=== PATIENT | female | born 1935 | race Hispanic/Latino ===

== ENCOUNTER 2018-08-30 10:10 | Inpatient (IN) | payer OTHER ==
[~2018-08-30] VITALS: Ht 167.6 cm; Wt 69.9 kg
[2018-08-30 10:59] LABS: BASOPHILS % (AUTO) 0.4 % (0.0-5.0); EOSINOPHILS % (AUTO) 1.2 % (0.0-8.0); HEMATOCRIT 33.9 % (36-48); MEAN CORPUSCULAR HEMOGLOBIN 28.6 pg (27.0-33.0); MEAN CORPUSCULAR HGB CONC 33.2 g/dL (32.0-36.0); MEAN CORPUSCULAR VOLUME 86.2 fL (79-99); MONOCYTES % (AUTO) 9.1 % (3.0-13.0); NEUTROPHILS % (AUTO) 78.3 % (40.0-77.0); NUCLEATED RED BLOOD CELLS 0.1 % (0.0-0.19); PLATELET COUNT (AUTO) 209 K/uL (130-400); RED BLOOD CELL COUNT(AUTO) 3.94 MIL/uL (4.00-5.50); RED CELL DISTRIBUTION WIDTH 16.9 % (11.0-15.5); WHITE BLOOD COUNT (AUTO) 7.2 K/uL (4.8-10.8)
[2018-08-30] MEDS ORDERED: METRONIDAZOLE 500 MG TABLET ONE (11:02)
[2018-08-30] MEDS ORDERED: LEVOFLOXACIN 500 MG/D5W 100 ML 100 ML ONE (11:02)
[2018-08-30 11:04] LABS: POTASSIUM 3.3 mmol/L (3.5-5.1)
[2018-08-30 11:09] LABS: ALBUMIN 2.5 g/dL (3.5-5.0); BILIRUBIN,TOTAL 0.3 mg/dL (0.2-1.0); TOTAL PROTEIN, SERUM 6.6 g/dL (6.0-8.3)
[2018-08-30] MEDS ORDERED: OMEG100032 PO (14:18)
[2018-08-30] MEDS ORDERED: CYAN100099 PO (14:18)
[2018-08-30] MEDS ORDERED: LOSA1TAB54 PO (14:18)
[2018-08-30] MEDS ORDERED: RISP0.2515 PO (14:18)
[2018-08-30] MEDS ORDERED: CALC-1105 PO (14:18)
[2018-08-30] MEDS ORDERED: MIRT15TA6 PO (14:18)
[2018-08-30] MEDS ORDERED: MULT-1258 PO (14:18)
[2018-08-30] MEDS ORDERED: [UNRECOGNIZED DRUG - CODE] PO (14:18)
[2018-08-30] MEDS ORDERED: SERT100T12 PO (14:18)
[2018-08-30] MEDS ORDERED: ONDA8TAB11 PO (14:18)
[2018-08-30] MEDS ORDERED: MEMA10TA20 PO (14:18)
[2018-08-30] MEDS ORDERED: ACET650T9 PO (14:18)
[2018-08-30] MEDS ORDERED: TRAZ-185 PO (14:18)
[2018-08-30] MEDS ORDERED: DONE23TA12 PO (14:18)
[2018-08-30] MEDS ORDERED: TRAM50TA4 PO (14:18)
[2018-08-30] MEDS ORDERED: AMLO2.5T2 PO (14:18)
[2018-08-30] MEDS ORDERED: PAZO200T PO (14:46)
[2018-08-30] MEDS ORDERED: ZOSYN 3.375GM+NS 50ML 50 ML IV ONE (17:35)
[2018-08-30] MEDS ORDERED: HYDROMORPHONE HCL 0.5 MG/0.5 ML ML IVP PRN (17:45)
[2018-08-30] MEDS ORDERED: ONDANSETRON HCL 4 MG/2 ML VIAL IVP PRN (18:00)
[2018-08-30] MEDS: SODIUM CHLORIDE 0.9% 1000ML 1,000 ML IV SCH (18:00)
[2018-08-30] MEDS ORDERED: ACETAMINOPHEN 650 MG SUPPOSITORY RC ONE (20:23)
[2018-08-30 23:15] LABS: APPEARANCE,URINE Cloudy (CLEAR); BILIRUBIN,URINE Negative (NEGATIVE); COLOR,URINE Yellow (YELLOW); GLUCOSE, URINE (UA) Negative (NEGATIVE); KETONES,URINE Negative (NEGATIVE); LEUKOCYTE ESTERASE ,URINE Moderate (NEGATIVE); NITRATE,URINE Negative (NEGATIVE); OCCULT BLOOD,URINE Negative (NEGATIVE); PROTEIN,URINE Negative (NEGATIVE); UROBILINOGEN,URINE 0.2 mg/dL (0.2-1.0)
[2018-08-30 23:24] LABS: BACTERIA,URINE None Seen /HPF (None Seen); RBC,URINE None Seen /HPF (0-1); SQUAMOUS EPITHELIAL CELL,UR Rare /HPF (0-2); WBC,URINE 0-1 /HPF (0-1)
[2018-08-31] MEDS: ZOSYN 3.375GM+NS 50ML 50 ML IV SCH ×3 (01:00→17:00)
[2018-08-31] MEDS ORDERED: ZOSYN 3.375GM+NS 50ML 50 ML IV ONE ×2 (01:38→10:11)
[2018-08-31] MEDS: SODIUM CHLORIDE 0.9% 1000ML 1,000 ML IV SCH ×3 (02:00→18:00)
[2018-08-31 05:37] LABS: BASOPHILS % (AUTO) 0.5 % (0.0-5.0); EOSINOPHILS % (AUTO) 1.7 % (0.0-8.0); HEMATOCRIT 30.2 % (36-48); LYMPHOCYTES % (AUTO) 16.9 % (21.0-51.0); MEAN CORPUSCULAR HEMOGLOBIN 28.8 pg (27.0-33.0); MEAN CORPUSCULAR HGB CONC 33.4 g/dL (32.0-36.0); MEAN CORPUSCULAR VOLUME 86.2 fL (79-99); MONOCYTES % (AUTO) 11.7 % (3.0-13.0); NEUTROPHILS % (AUTO) 69.2 % (40.0-77.0); PLATELET COUNT (AUTO) 203 K/uL (130-400); RED BLOOD CELL COUNT(AUTO) 3.51 MIL/uL (4.00-5.50); RED CELL DISTRIBUTION WIDTH 16.8 % (11.0-15.5); WHITE BLOOD COUNT (AUTO) 7.3 K/uL (4.8-10.8)
[2018-08-31 05:48] LABS: POTASSIUM 3.2 mmol/L (3.5-5.1)
[2018-08-31 05:52] LABS: BILIRUBIN,TOTAL 0.5 mg/dL (0.2-1.0); MAGNESIUM 1.6 mg/dL (1.80-2.40); PHOSPHORUS 2.7 mg/dL (2.5-4.9); TOTAL PROTEIN, SERUM 5.5 g/dL (6.0-8.3)
[2018-08-31] MEDS: PANTOPRAZOLE 40 MG/VIAL IVP SCH (09:00)
[2018-08-31] MEDS ORDERED: LEVOFLOXACIN 500 MG/D5W 100 ML 100 ML ONE (10:11)
--- NOTE | 2018-08-31 10:39 | NUR ---
NIDA Joseluis met with pt who states she and Bharath Goldsmith live with their daughter Coral [address] [id number]. Pt states she is retired, independent, no DME or in home care services. Pt is seen by Dr Mariscal and uses Jovan Harper. Pt denies dc needs, plan is home with family Addendum: 08/31/18 at 1041 by HO HOLDER Amended: Links added.
[2018-08-31] MEDS: LEVOFLOXACIN 500 MG/D5W 100 ML 100 ML IV SCH (11:00)
[2018-08-31] MEDS ORDERED: LORAZEPAM 2 MG/ML 1 ML VIAL ONE (15:17)
[2018-09-01] MEDS: ZOSYN 3.375GM+NS 50ML 50 ML IV SCH ×3 (01:00→21:07)
[2018-09-01] MEDS: SODIUM CHLORIDE 0.9% 1000ML 1,000 ML IV SCH ×3 (02:00→20:22)
[2018-09-01] MEDS ORDERED: ZOSYN 3.375GM+NS 50ML 50 ML IV ONE (02:58)
[2018-09-01 03:50] VITALS: BP 143/62
--- NOTE | 2018-09-01 03:50 | NUR ---
PATIENT ARRIVED TO ROOM, ORIENTATED TO CALL ALONZO, BATH GIVEN. PATIENT ORIENTATED TO NAME ONLY. ALONZO ALARM ON, CALL ALONZO WITHIN REACH.
[2018-09-01 07:39] VITALS: BP 125/57
--- NOTE | 2018-09-01 08:35 | NUR ---
DR JONES NOTIFIED AND STATED THAT HE WILL SEE HER THIS AM
[2018-09-01 08:49] LABS: BASOPHILS % (AUTO) 0.2 % (0.0-5.0); HEMATOCRIT 32.4 % (36-48); LYMPHOCYTES % (AUTO) 12.5 % (21.0-51.0); MEAN CORPUSCULAR HEMOGLOBIN 28.8 pg (27.0-33.0); MEAN CORPUSCULAR HGB CONC 33.3 g/dL (32.0-36.0); MEAN CORPUSCULAR VOLUME 86.5 fL (79-99); MONOCYTES % (AUTO) 10.9 % (3.0-13.0); NEUTROPHILS % (AUTO) 75.4 % (40.0-77.0); NUCLEATED RED BLOOD CELLS 0.1 % (0.0-0.19); PLATELET COUNT (AUTO) 199 K/uL (130-400); RED BLOOD CELL COUNT(AUTO) 3.75 MIL/uL (4.00-5.50); RED CELL DISTRIBUTION WIDTH 16.6 % (11.0-15.5); WHITE BLOOD COUNT (AUTO) 6.7 K/uL (4.8-10.8)
[2018-09-01 08:57] LABS: CREATININE 0.8 mg/dL (0.5-1.5); POTASSIUM 3.2 mmol/L (3.5-5.1)
[2018-09-01] MEDS: PANTOPRAZOLE 40 MG/VIAL IVP SCH (10:05)
[2018-09-01] MEDS: LEVOFLOXACIN 500 MG/D5W 100 ML 100 ML IV SCH (10:05)
[2018-09-01 11:35] VITALS: BP 147/58
[2018-09-01] MEDS ORDERED: TRAZODONE HCL 50 MG TAB PO PRN (12:15)
[2018-09-01] MEDS ORDERED: NON-FORMULARY MEDICATION 1 EACH (Ondansetron HCl 8 MG) PO PRN (12:15)
[2018-09-01] MEDS ORDERED: ACETAMINOPHEN EXTENDED RELEASE 650 MG TABLET PO PRN (12:15)
[2018-09-01] MEDS ORDERED: TRAMADOL HCL 50 MG TABLET PO PRN (12:15)
[2018-09-01] MEDS ORDERED: ACETAMINOPHEN 325 MG SUPPOSITORY RC PRN (12:49)
[2018-09-01] MEDS ORDERED: ACETAMINOPHEN 325 MG TAB PO PRN (12:50)
[2018-09-01 16:14] VITALS: BP 136/65
[2018-09-01 19:00] VITALS: BP 153/70
[2018-09-01] MEDS: RISPERIDONE 0.5 MG TABLET PO SCH (20:22)
[2018-09-01] MEDS: MIRTAZAPINE 15 MG TABLET PO SCH (20:22)
[2018-09-01] MEDS: MEMANTINE HCL 5 MG TABLET PO SCH (20:22)
[2018-09-01] MEDS: DONEPEZIL HCL 23 MG PO SCH (20:43)
[2018-09-01] MEDS ORDERED: POTASSIUM CHLORIDE 20 MEQ ERTAB PO PRN (20:45)
[2018-09-01 23:00] VITALS: BP 121/63
[2018-09-01] MEDS: POTASSIUM CHLORIDE 10% ELIXIR 20 MEQ/15 ML UDCUP PO PRN (23:15)
[2018-09-02] MEDS: SODIUM CHLORIDE 0.9% 1000ML 1,000 ML IV SCH ×3 (02:00→18:00)
[2018-09-02 03:00] VITALS: BP 129/55
[2018-09-02 03:25] LABS: HEMATOCRIT 30.3 % (36-48); MEAN CORPUSCULAR HEMOGLOBIN 28.8 pg (27.0-33.0); MEAN CORPUSCULAR HGB CONC 33.4 g/dL (32.0-36.0); PLATELET COUNT (AUTO) 210 K/uL (130-400); RED BLOOD CELL COUNT(AUTO) 3.52 MIL/uL (4.00-5.50); RED CELL DISTRIBUTION WIDTH 16.8 % (11.0-15.5); WHITE BLOOD COUNT (AUTO) 6.6 K/uL (4.8-10.8)
[2018-09-02 03:27] LABS: CREATININE 0.8 mg/dL (0.5-1.5); MAGNESIUM 1.6 mg/dL (1.80-2.40); POTASSIUM 3.3 mmol/L (3.5-5.1)
[2018-09-02] MEDS: POTASSIUM CHLORIDE 10% ELIXIR 20 MEQ/15 ML UDCUP PO PRN ×2 (03:39→05:52)
[2018-09-02] MEDS: MAGNESIUM 2GM PREMIX 50ML 50 ML IV PRN (03:40)
[2018-09-02] MEDS: ZOSYN 3.375GM+NS 50ML 50 ML IV SCH ×3 (05:51→23:45)
[2018-09-02] MEDS: PAZOPANIB HCL PO SCH (05:51)
[2018-09-02 07:14] VITALS: BP 155/63
[2018-09-02] MEDS: GARLIC 2000 MG PO SCH (09:00)
[2018-09-02] MEDS: CALCIUM 600 + VITAMIN D 400 TABLET PO SCH (10:12)
[2018-09-02] MEDS: LOSARTAN/HYDROCHLOROTHIAZIDE 50-12.5MG TABLET PO SCH (10:12)
[2018-09-02] MEDS: SERTRALINE HCL 50 MG TABLET PO SCH (10:12)
[2018-09-02] MEDS: MEMANTINE HCL 5 MG TABLET PO SCH ×2 (10:12→20:29)
[2018-09-02] MEDS: CYANOCOBALAMIN (VITAMIN B-12) 1,000 MCG TABLET PO SCH (10:13)
[2018-09-02] MEDS: AMLODIPINE BESYLATE 2.5 MG TAB PO SCH (10:13)
[2018-09-02] MEDS: MULTIVITAMIN TABLET PO SCH (10:13)
[2018-09-02] MEDS: PANTOPRAZOLE 40 MG/VIAL IVP SCH (10:13)
[2018-09-02] MEDS: FISH OIL 1000 MG/CAP PO SCH (10:13)
[2018-09-02] MEDS: RISPERIDONE 0.5 MG TABLET PO SCH ×2 (10:13→20:30)
[2018-09-02] MEDS: LEVOFLOXACIN 500 MG/D5W 100 ML 100 ML IV SCH (11:05)
[2018-09-02 11:23] VITALS: BP 158/60
--- NOTE | 2018-09-02 11:45 | NUR ---
DR JONES STOPPED BY TO SEE PATIENT SHE WAS BEING BATHED BY STAFF. HE WAS ABLE TO SEE HER SHE WAS WALKING OUT WITH THE ASSISTANCE OF THREADING MACHINE TENDER AND NURSE. HE SAID THAT SHE LOOKED FINE AND HE WOULD RE-EVALUATE AFTER THE ANTIBIOTICS AND MEDICATIONS HAVE HAD TIME TO WORK AND TO CONTINUE WITH WHAT WE ARE DOING. Addendum: 09/02/18 at 1628 by SUE SALCEDO RN RN Amended: Links added.
[2018-09-02] MEDS ORDERED: MAGNESIUM 2GM PREMIX 50ML 50 ML IV PRN (12:00)
[2018-09-02 16:07] VITALS: BP 144/64
--- NOTE | 2018-09-02 20:00 | NUR ---
PT HAD LOOSE STOOL, WITH RED TINGE DAUGHTER STATED CONCERNS. CALLED BREEZY ABRAHAM. INFORMED OF LOOSE BM AND RED TINGE IN BM. STATED CAUSED BY PT CONDITION OF DIVERTICULOSIS AND INFECTION. FAMILY REQUESTING IMODIUM. INFORMED THAT [employer]UNTER STUDENT DEVELOPMENT SPECIALIST STATED WOULD NOT GIVE IMODIUM MEDICATION ORDER BECAUSE IT WILL NOT CAUSE IMPROVEMENT.
[2018-09-02 20:08] VITALS: BP 150/75
[2018-09-02] MEDS: DONEPEZIL HCL 23 MG PO SCH (20:30)
[2018-09-02] MEDS: MIRTAZAPINE 15 MG TABLET PO SCH (20:30)
--- NOTE | 2018-09-02 21:00 | NUR ---
PT IN BED, FAMILY AT BEDSIDE. DAUGHTER IS CONCERNED RELATING TO PTS HOME MEDICATIONS BEING GIVEN. PT IS AAOX2-3. FORGETFUL AT TIMES. HAD LOOSE STOOL AND THERE WAS A RED TINGE ON THE BOWEL MOVEMENT. PT IV INFILTRATED.
--- NOTE | 2018-09-03 | NUR ---
NEW IV TO RIGHT HAND 20G.
[2018-09-03 00:09] VITALS: BP 164/69
[2018-09-03] MEDS: SODIUM CHLORIDE 0.9% 1000ML 1,000 ML IV SCH ×3 (02:00→18:00)
[2018-09-03 03:33] LABS: BASOPHILS % (AUTO) 0.2 % (0.0-5.0); EOSINOPHILS % (AUTO) 0.8 % (0.0-8.0); HEMATOCRIT 32.1 % (36-48); MEAN CORPUSCULAR HEMOGLOBIN 28.9 pg (27.0-33.0); MEAN CORPUSCULAR HGB CONC 33.9 g/dL (32.0-36.0); MEAN CORPUSCULAR VOLUME 85.1 fL (79-99); MONOCYTES % (AUTO) 10.5 % (3.0-13.0); NEUTROPHILS % (AUTO) 78.5 % (40.0-77.0); PLATELET COUNT (AUTO) 221 K/uL (130-400); RED BLOOD CELL COUNT(AUTO) 3.77 MIL/uL (4.00-5.50); RED CELL DISTRIBUTION WIDTH 16.9 % (11.0-15.5); WHITE BLOOD COUNT (AUTO) 9.8 K/uL (4.8-10.8)
[2018-09-03 03:50] LABS: CREATININE 0.8 mg/dL (0.5-1.5); MAGNESIUM 1.9 mg/dL (1.80-2.40)
[2018-09-03 03:55] LABS: POTASSIUM 2.9 mmol/L (3.5-5.1)
[2018-09-03 04:05] VITALS: BP 136/59
[2018-09-03] MEDS: POTASSIUM CHLORIDE 20MEQ/100ML 100 ML IV PRN (04:05)
[2018-09-03] MEDS: LIDOCAINE HCL-MPF 1% 2ML VIAL IVP PRN ×2 (04:05→09:41)
[2018-09-03] MEDS: PAZOPANIB HCL PO SCH ×2 (06:00→06:23)
[2018-09-03] MEDS: ZOSYN 3.375GM+NS 50ML 50 ML IV SCH ×3 (06:23→22:05)
[2018-09-03 07:24] VITALS: BP 156/58
[2018-09-03] MEDS: CYANOCOBALAMIN (VITAMIN B-12) 1,000 MCG TABLET PO SCH (09:00)
[2018-09-03] MEDS: MULTIVITAMIN TABLET PO SCH (09:00)
[2018-09-03] MEDS: FISH OIL 1000 MG/CAP PO SCH (09:00)
[2018-09-03] MEDS: CALCIUM 600 + VITAMIN D 400 TABLET PO SCH (09:00)
[2018-09-03] MEDS: GARLIC 2000 MG PO SCH (09:00)
[2018-09-03] MEDS: MEMANTINE HCL 5 MG TABLET PO SCH ×2 (09:39→20:48)
[2018-09-03] MEDS: AMLODIPINE BESYLATE 2.5 MG TAB PO SCH (09:39)
[2018-09-03] MEDS: RISPERIDONE 0.5 MG TABLET PO SCH ×2 (09:39→20:48)
[2018-09-03] MEDS: SERTRALINE HCL 50 MG TABLET PO SCH (09:40)
[2018-09-03] MEDS: PANTOPRAZOLE SODIUM 40 MG TABLET.DR PO SCH (09:40)
[2018-09-03] MEDS: LOSARTAN/HYDROCHLOROTHIAZIDE 50-12.5MG TABLET PO SCH (09:41)
[2018-09-03] MEDS: LEVOFLOXACIN 500 MG/D5W 100 ML 100 ML IV SCH (10:23)
[2018-09-03 10:54] VITALS: BP 155/60
[2018-09-03] MEDS ORDERED: MAGNESIUM 2GM PREMIX 50ML 50 ML IV PRN (15:15)
[2018-09-03] MEDS ORDERED: HYDRALAZINE HCL 20 MG/ML VIAL IV PRN (15:15)
[2018-09-03 15:27] VITALS: BP 132/78
[2018-09-03 20:02] VITALS: BP 139/65
[2018-09-03] MEDS ORDERED: TRAMADOL HCL 50 MG TABLET PO PRN (20:15)
[2018-09-03] MEDS: MIRTAZAPINE 15 MG TABLET PO SCH (20:48)
[2018-09-03] MEDS: DONEPEZIL HCL 23 MG PO SCH (20:48)
--- NOTE | 2018-09-03 21:00 | NUR ---
PT IN BED, DAUGHTER AND AT BEDSIDE. NO DISTRESS NOTED. LUIS MANUEL RN STATED PT HAD BEEN STABLE THROUGHOUT THE DAY. CONTINUES WITH ANOTHER EPISODE OF DIARRHEA. STATES NO PAIN. ABLE TO TAKE MEDICATIONS DIRECTED. ABLE TO TOLERATE FLUIDS TODAY. NO NAUSEA TODAY COMPARED TO PREVIOUS NIGHT. SHOWS SIGNS OF IMPROVEMENT. CONTINUES ON ZOSYN
[2018-09-04] VITALS (7 sets, daily range): BP systolic 127–171; BP diastolic 52–85
[2018-09-04] MEDS: SODIUM CHLORIDE 0.9% 1000ML 1,000 ML IV SCH ×2 (02:00→18:14)
[2018-09-04 03:52] LABS: HEMATOCRIT 29.7 % (36-48); MEAN CORPUSCULAR HEMOGLOBIN 28.8 pg (27.0-33.0); MEAN CORPUSCULAR HGB CONC 33.7 g/dL (32.0-36.0); MEAN CORPUSCULAR VOLUME 85.5 fL (79-99); PLATELET COUNT (AUTO) 213 K/uL (130-400); RED BLOOD CELL COUNT(AUTO) 3.48 MIL/uL (4.00-5.50); RED CELL DISTRIBUTION WIDTH 16.7 % (11.0-15.5)
[2018-09-04 04:06] LABS: CREATININE 0.8 mg/dL (0.5-1.5); MAGNESIUM 1.7 mg/dL (1.80-2.40)
[2018-09-04 04:09] LABS: POTASSIUM 2.7 mmol/L (3.5-5.1)
[2018-09-04] MEDS: POTASSIUM CHLORIDE 20MEQ/100ML 100 ML IV PRN ×3 (04:16→22:34)
[2018-09-04] MEDS: LIDOCAINE HCL-MPF 1% 2ML VIAL IVP PRN ×3 (04:17→22:34)
[2018-09-04] MEDS: ZOSYN 3.375GM+NS 50ML 50 ML IV SCH ×3 (05:10→22:34)
[2018-09-04] MEDS: MAGNESIUM 2GM PREMIX 50ML 50 ML IV PRN (05:11)
[2018-09-04] MEDS: PANTOPRAZOLE SODIUM 40 MG TABLET.DR PO SCH (07:54)
[2018-09-04] MEDS: PAZOPANIB HCL PO SCH (07:55)
[2018-09-04] MEDS: LOSARTAN 50 MG TABLET PO SCH (08:54)
[2018-09-04] MEDS: MEMANTINE HCL 5 MG TABLET PO SCH ×2 (08:54→22:35)
[2018-09-04] MEDS: SERTRALINE HCL 50 MG TABLET PO SCH (08:54)
[2018-09-04] MEDS: AMLODIPINE BESYLATE 2.5 MG TAB PO SCH (08:54)
[2018-09-04] MEDS: GARLIC 2000 MG PO SCH (08:55)
[2018-09-04] MEDS: FISH OIL 1000 MG/CAP PO SCH (08:55)
[2018-09-04] MEDS: CALCIUM 600 + VITAMIN D 400 TABLET PO SCH (08:55)
[2018-09-04] MEDS: MULTIVITAMIN TABLET PO SCH (08:55)
[2018-09-04] MEDS: RISPERIDONE 0.5 MG TABLET PO SCH ×2 (08:56→22:35)
[2018-09-04] MEDS: CYANOCOBALAMIN (VITAMIN B-12) 1,000 MCG TABLET PO SCH (08:56)
[2018-09-04] MEDS: LEVOFLOXACIN 500 MG/D5W 100 ML 100 ML IV SCH (11:41)
--- NOTE | 2018-09-04 18:32 | NUR ---
LAB INFORMED ME THAT THE C-DIFF WAS POSSIBLY POSITIVE AND PATIENT WAS PLACED ON CONTACT PRECAUTIONS. WHEN I CALLED THE LAB TO HELP ME UNDERSTAND THE NEXT SHIFT HAD ARRIVED AND WHEN I ASKED HIM TO EXPLAIN TO ME WHAT I WAS TO UNDERSTAND OF THIS READING IT SAID NEGATIVE AND POSSIBLE POSITIVE ANTIGEN. EVENING ORGAN PIPE MAKER METAL STATED THAT HE WAS LOOKING TO SEE IF A SPECIMEN WAS SENT TO [facility] FOR FURTHER EVALUATION AND HE WAS LOOKING FOR A PAPER TRAIL AND WOULD FOLLOW UP WITH ME. MEANWHILE I WAS INSTRUCTED TO TRY AND COLLECT ANOTHER SAMPLE IN CASE ONE WAS NOT SENT. Addendum: 09/04/18 at 1836 by SUE SALCEDO RN RN Amended: Links added.
--- NOTE | 2018-09-04 22:00 | NUR ---
PT IN BED, MORE AWAKE AND ALERT TODAY. ABLE TO TAKE MEDICATIONS REQUIRED. CONTINUES WITH LOOSE STOOLS. ISSUES CONCERNING STOOL COLLECTION AND SENDOFF ACCORDING TO LAB. COLLECTED NEW STOOL AND SENT TO LAB. PENDING RESULTS RELATING TO C-DIFF RESULTS. PT ON CONTACT PRECAUTIONS AT THE MOMENT. IV FLUIDS CONTINUE. AND POTASSIUM ADMINISTERED TO CONTINUE TO PROVIDE COVERAGE. MINIMAL CONFUSION AT TIME BUT CAN STATE NAME AND .
[2018-09-04] MEDS: MIRTAZAPINE 15 MG TABLET PO SCH (22:35)
[2018-09-04] MEDS: DONEPEZIL HCL 23 MG PO SCH (22:59)
[2018-09-05] MEDS: SODIUM CHLORIDE 0.9% 1000ML 1,000 ML IV SCH ×3 (01:57→18:00)
[2018-09-05 03:41] LABS: HEMATOCRIT 30.4 % (36-48); MEAN CORPUSCULAR HEMOGLOBIN 28.7 pg (27.0-33.0); MEAN CORPUSCULAR HGB CONC 33.7 g/dL (32.0-36.0); NUCLEATED RED BLOOD CELLS 0.1 % (0.0-0.19); PLATELET COUNT (AUTO) 204 K/uL (130-400); RED BLOOD CELL COUNT(AUTO) 3.58 MIL/uL (4.00-5.50); RED CELL DISTRIBUTION WIDTH 16.9 % (11.0-15.5); WHITE BLOOD COUNT (AUTO) 7.9 K/uL (4.8-10.8)
[2018-09-05 03:52] LABS: INR 1.06 (0.85-1.15); PARTIAL THROMBOPLASTIN TIME 34.8 SEC (26.3-35.5); PROTHROMBIN TIME 11.1 SEC (9.6-11.6)
[2018-09-05 03:59] LABS: ALBUMIN 1.6 g/dL (3.5-5.0); BILIRUBIN,TOTAL 0.5 mg/dL (0.2-1.0); CREATININE 0.7 mg/dL (0.5-1.5); MAGNESIUM 1.9 mg/dL (1.80-2.40); PHOSPHORUS 1.3 mg/dL (2.5-4.9); POTASSIUM 3.2 mmol/L (3.5-5.1); TOTAL PROTEIN, SERUM 4.7 g/dL (6.0-8.3)
[2018-09-05 04:13] VITALS: BP 146/64
[2018-09-05] MEDS: MAGNESIUM 2GM PREMIX 50ML 50 ML IV PRN (05:23)
[2018-09-05] MEDS: ZOSYN 3.375GM+NS 50ML 50 ML IV SCH (06:34)
[2018-09-05] MEDS: PAZOPANIB HCL PO SCH (06:38)
[2018-09-05] MEDS: PANTOPRAZOLE SODIUM 40 MG TABLET.DR PO SCH (06:38)
[2018-09-05 07:48] VITALS: BP 168/71
--- NOTE | 2018-09-05 08:15 | NUR ---
ASSESSMENT ENCOUNTERED PT ASLEEP BUT AROUSEABLE, A&O TO NAME AND PLACE. CALM COOPERATIVE AND DOES NOT APPEAR TO BE IN ANY DISTRESS. PT DENIES NAUSEA OR VOMITING BUT DOES C/O OF INTERMITTENT ABDOMINAL DISCOMFORT. PT IS TOLERATING CLEAR FLUIDS AND MEDICATION WITH NO THROAT CLEARING, COUGH, NAUSEA OR VOMITING. PT HAS BEEN HAVING BOWEL MOVEMENTS. PT IS ABLE TO AMBULATE TO BATHROOM AND BACK TO BED, GAIT SLOW BUT STEADY WITH 1-2 PERSON ASSIST. CALL LIGHT WITHIN REACH, BED ALARM ACTIVATED, PT IN FULL VIEW OF RN STATION.
[2018-09-05] MEDS: GARLIC 2000 MG PO SCH (09:00)
[2018-09-05] MEDS: MULTIVITAMIN TABLET PO SCH (10:43)
[2018-09-05] MEDS: MEMANTINE HCL 5 MG TABLET PO SCH ×2 (10:43→20:14)
[2018-09-05] MEDS: CYANOCOBALAMIN (VITAMIN B-12) 1,000 MCG TABLET PO SCH (10:43)
[2018-09-05] MEDS: RISPERIDONE 0.5 MG TABLET PO SCH ×2 (10:43→20:14)
[2018-09-05] MEDS: CALCIUM 600 + VITAMIN D 400 TABLET PO SCH (10:43)
[2018-09-05] MEDS: LOSARTAN 50 MG TABLET PO SCH (10:43)
[2018-09-05] MEDS: AMLODIPINE BESYLATE 2.5 MG TAB PO SCH (10:43)
[2018-09-05] MEDS: FISH OIL 1000 MG/CAP PO SCH (10:43)
[2018-09-05] MEDS: SERTRALINE HCL 50 MG TABLET PO SCH (10:43)
[2018-09-05 11:39] VITALS: BP 146/58
[2018-09-05] MEDS ORDERED: PHARMACY COMMUNICATION MISC SCH (13:00)
[2018-09-05] MEDS ORDERED: VANCOMYCIN 250MG/5ML ORAL SOLUTION 40ML PO SCH ×2 (13:00)
[2018-09-05] MEDS ORDERED: COMPOUND PO MISCELLANEOUS 1 EACH MISC MISC PRN ×2 (13:00→21:00)
[2018-09-05] MEDS: AMOXICILLIN/POTASSIUM CLAV 875-125 TABLET PO SCH ×2 (14:00→20:13)
--- NOTE | 2018-09-05 15:31 | NUR ---
RDSCREEN - LOS X 6 Patient tolerating Full Liquid diet; Diet to be advanced to Heart Healthy, Soft Diet as per RN. Rec to add Ensure QD for increased energy intake. Patient LBM 09/05/18. Patient monitored labs: K 3.2, BUN 5, Ca 7.5, P 1.3, Alb 1.6. RD to continue to monitor. Please notify RD as nutritional concerns arise. Thank you. Addendum: 09/05/18 at [address] Amended: Links added.
[2018-09-05 15:54] VITALS: BP 149/70
[2018-09-05 19:13] VITALS: BP 162/65
[2018-09-05] MEDS: MIRTAZAPINE 15 MG TABLET PO SCH (20:15)
[2018-09-05] MEDS: DONEPEZIL HCL 23 MG PO SCH (21:29)
[2018-09-05] MEDS: VANCOMYCIN 250 MG/5 ML PO SCH ×2 (21:29)
[2018-09-05 23:49] VITALS: BP 141/63
[2018-09-06] MEDS: VANCOMYCIN 250 MG/5 ML PO SCH ×4 (03:12→10:47)
[2018-09-06 03:39] VITALS: BP 148/70
[2018-09-06 03:58] LABS: BASOPHILS % (AUTO) 0.2 % (0.0-5.0); EOSINOPHILS % (AUTO) 4.5 % (0.0-8.0); HEMATOCRIT 30.5 % (36-48); LYMPHOCYTES % (AUTO) 15.7 % (21.0-51.0); MEAN CORPUSCULAR HEMOGLOBIN 28.4 pg (27.0-33.0); MEAN CORPUSCULAR HGB CONC 33.3 g/dL (32.0-36.0); MEAN CORPUSCULAR VOLUME 85.2 fL (79-99); MONOCYTES % (AUTO) 10.7 % (3.0-13.0); NEUTROPHILS % (AUTO) 68.9 % (40.0-77.0); PLATELET COUNT (AUTO) 223 K/uL (130-400); RED BLOOD CELL COUNT(AUTO) 3.58 MIL/uL (4.00-5.50); RED CELL DISTRIBUTION WIDTH 17.2 % (11.0-15.5); WHITE BLOOD COUNT (AUTO) 6.7 K/uL (4.8-10.8)
[2018-09-06 04:14] LABS: CREATININE 0.8 mg/dL (0.5-1.5); POTASSIUM 3.1 mmol/L (3.5-5.1)
[2018-09-06] MEDS: PANTOPRAZOLE SODIUM 40 MG TABLET.DR PO SCH (06:08)
[2018-09-06] MEDS: PAZOPANIB HCL PO SCH (06:11)
[2018-09-06 07:00] VITALS: BP 150/66
--- NOTE | 2018-09-06 08:05 | NUR ---
ASSESSMENT ENCOUNTERED PT ASLEEP BUT AROUSEABLE, A&O TO NAME AND PLACE. CALM COOPERATIVE AND DOES NOT APPEAR TO BE IN ANY DISTRESS. PT DENIES NAUSEA OR VOMITING BUT DOES C/O OF INTERMITTENT ABDOMINAL DISCOMFORT. PT STATES SHE IS HUNGRY AND HAS BEEN ABLE TO TOLERATE FOODS, FLUIDS AND MEDICATION WITH NO THROAT CLEARING, COUGH, NAUSEA OR VOMITING. PT HAS BEEN HAVING BOWEL MOVEMENTS. PT IS ABLE TO AMBULATE TO BATHROOM AND BACK TO BED, GAIT SLOW BUT STEADY WITH 1-2 PERSON ASSIST. CALL LIGHT WITHIN REACH, BED ALARM ACTIVATED, PT IN FULL VIEW OF RN STATION.
[2018-09-06] MEDS: POTASSIUM CHLORIDE 10% ELIXIR 20 MEQ/15 ML UDCUP PO PRN (10:46)
[2018-09-06] MEDS: MULTIVITAMIN TABLET PO SCH (10:47)
[2018-09-06] MEDS: MEMANTINE HCL 5 MG TABLET PO SCH (10:47)
[2018-09-06] MEDS: AMOXICILLIN/POTASSIUM CLAV 875-125 TABLET PO SCH (10:47)
[2018-09-06] MEDS: CALCIUM 600 + VITAMIN D 400 TABLET PO SCH (10:47)
[2018-09-06] MEDS: LOSARTAN 50 MG TABLET PO SCH (10:47)
[2018-09-06] MEDS: AMLODIPINE BESYLATE 2.5 MG TAB PO SCH (10:47)
[2018-09-06] MEDS: CYANOCOBALAMIN (VITAMIN B-12) 1,000 MCG TABLET PO SCH (10:47)
[2018-09-06] MEDS: FISH OIL 1000 MG/CAP PO SCH (10:47)
[2018-09-06 11:00] VITALS: BP 171/72
[2018-09-06] MEDS ORDERED: AMOX1TAB16 PO (12:21)
[2018-09-06 16:00] VITALS: BP 155/66
--- NOTE | 2018-09-06 18:30 | NUR ---
DISCHARGE INSTRUCTIONS GIVEN TO DAUGHTER NAFISA AT BEDSIDE, INFORMED HER THAT [facility] WOULD BE ABLE TO FILL PRESCRIPTION FOR VANCOMYCIN SUSPENSION IN ADDITION TO THE REMAINING BOTTLE OF VANCOMYCIN SUSPENSION AT BEDSIDE. PIV REMOVED AND INTACT, INFORMED HER TO TAKE ANTIBIOTICS UNTIL COMPLETION AND FOLLOW UP WITH MD OR RETURN TO ER IF PT BEGINS TO HAVE FEVERS, CHILLS, OR WORSENING DIARRHEA. DISCHARGED HOME TO FAMILY VEHICLE VIA WHEELCHAIR.
== END 2018-09-06 20:03 | disposition home or self-care (01) | DRG 871 ==
LOC: EDH 10:10 → EDHIP 17:20 → 2AH 09-01 03:50
PROVIDERS: ADMIT Internal Medicine; ATTEND Internal Medicine
DX: A41.9 Sepsis, unspecified organism (principal); G92 Toxic encephalopathy; K57.80 Diverticulitis of intestine, part unspecified, with perforation and abscess without bleeding; E46 Unspecified protein-calorie malnutrition; A04.72 Enterocolitis due to Clostridium difficile, not specified as recurrent; R65.20 Severe sepsis without septic shock; F41.9 Anxiety disorder, unspecified; F32.9 Major depressive disorder, single episode, unspecified; F02.80 Dementia in other diseases classified elsewhere, unspecified severity, without behavioral disturbance, psychotic disturbance, mood disturbance, and anxiety; G30.9 Alzheimer's disease, unspecified; I10 Essential (primary) hypertension; Z68.24 Body mass index [BMI] 24.0-24.9, adult; Z90.5 Acquired absence of kidney
CPT/HCPCS: 36415; 71045; 80048; 80053; 81001; 82948; 83605; 83690; 83735; 84100; 84132; 85025; 85027; 85610; 85730; 87040; 87324; 87493; 97039; C9113; G0378; J0360; J1956; J2060; J2405; J2543; J3370; J3475; J3480; J3490; J7030